=== PATIENT | male | born 1945 | race Caucasian/White ===

== ENCOUNTER 2020-05-10 18:18 | Inpatient (IN) | payer MEDICARE ==
[~2020-05-10] VITALS: Ht 185.4 cm; Wt 78.9 kg
[2020-05-10 18:58] LABS: BASOPHILS # (AUTO) 0.1 /CMM (0.0-0.2); BASOPHILS % (AUTO) 0.9 % (0.0-2.0); EOSINOPHILS % (AUTO) 3.8 % (0.0-6.0); HEMATOCRIT 41 % (39-51); HEMOGLOBIN 13.4 g/dL (13.5-17.5); LYMPHOCYTES # (AUTO) 1.4 /CMM (0.8-4.8); LYMPHOCYTES % (AUTO) 23.4 % (20.0-44.0); MEAN CORPUSCULAR HGB CONC 33 g/dl (31.0-36.0); MEAN CORPUSCULAR VOLUME 87 fL (80-96); MONOCYTES # (AUTO) 0.7 /CMM (0.1-1.30); MONOCYTES % (AUTO) 11.1 % (2.0-12.0); NEUTROPHILS # (AUTO) 3.6 /CMM (1.8-8.9); NEUTROPHILS % (AUTO) 60.8 % (43.0-81.0); PLATELET COUNT (AUTO) 283 /CMM (150-450)
--- NOTE | 2020-05-10 19:06 | NUR ---
AZALEA TO ER BED 12. ALERT, AWAKE BUT CONFUSED. NOT IN RESP DISTRESS. AMBULATORY. SENT BY DR. RODGERS FOR ALTERMENTAL STATUS EVIDENCED BY INCREASED CONFUSION. PT IS COMPLIANT AND COOPERATIVE. PT DENIES ANY THOUGHTS OF HURTING HIMSELF AND OTHERS. WAS AT THE BEDSIDE FOR EVAL. ORDERS RECEIVED NOTED AND CARRIED OUT. IV LINE ESTABLISHED ON R HAND 18G. BLOOD DRAWN AND GIVEN TO AUTOMATIC SPOOLER OPERATOR AT BEDSIDE. EKG DONE BY EMT. PT IS UNABLE TO URINATE AT THIS TIME. MADE AWARE. PROVIDED WITH MEAL AND DRINK TO PROMOTE URINATION.
--- NOTE | 2020-05-10 19:06 | NUR ---
Marisela parkinson in [facility] - 05/10/20 at 1906 by IVELISSE BIO
[2020-05-10 19:20] LABS: CARBON DIOXIDE 27 mmol/L (21-32); CHLORIDE 103 mmol/L (98-107); CREATININE 0.9 mg/dL (0.6-1.3); GLUCOSE 145 mg/dL (74-106); POTASSIUM 4.3 mmol/L (3.5-5.1); SODIUM SERUM 140 mmol/L (136-145); UREA NITROGEN, BLOOD 20 mg/dL (7-18)
--- NOTE | 2020-05-10 19:21 | NUR ---
called for covid swab
[2020-05-10 19:24] LABS: ALANINE AMINOTRANSFERASE 20 U/L (12-78); ALBUMIN 3.2 g/dL (3.4-5.0); ALCOHOL, BLOOD < 3 mg/dL (0-0); ALKALINE PHOSPHATASE 99 U/L (46-116); ASPARTATE AMINOTRANSFERASE 14 U/L (15-37); BILIRUBIN,DIRECT 0.1 mg/dL (0.0-0.2); BILIRUBIN,TOTAL 0.1 mg/dL (0.2-1.0); TOTAL PROTEIN, SERUM 7.1 g/dL (6.4-8.2)
[2020-05-10 19:25] LABS: SALICYLATE 0.6 mg/dL (2.8-20.0)
--- NOTE | 2020-05-10 19:28 | NUR ---
COVID SWAB DONE AND SENT TO LAB
--- NOTE | 2020-05-10 19:58 | NUR ---
PT HAS BEEN TRYING TO PROVIDE URINE SAMPLE BUT PT STILL UNABLE TO URINATE AT THIS TIME. PT IS GOING TO CT ON WHEELCHAIR. WILL TRY AGAIN ONCE HE GETS BACK FROM CT
--- NOTE | 2020-05-10 20:06 | NUR ---
LAB CALLED REGARDING NEGATIVE COVID RESULT.
[2020-05-10] MEDS ORDERED: LIDOCAINE 2% JEL UROJET 10 ML MM ONE ×2 (20:14→21:30)
--- NOTE | 2020-05-10 20:30 | NUR ---
BED ASSIGNMENT 215-B
--- NOTE | 2020-05-10 20:31 | NUR ---
URINE COLECTED VIA IN AND OUT CATH PER MD ORDERED. STRICT STERILE TECHNIQUE OBSERVED WHILE DOING THE PROCEDURE. LICOCAINE 2% UROJET USED. NO PAIN COMPLAINED BY THE PT
[2020-05-10 20:47] LABS: APPEARANCE,URINE Clear (CLEAR); BILIRUBIN,URINE Negative (NEGATIVE); BLOOD, URINE Trace-intact Ery/uL (NEGATIVE); COLOR,URINE Yellow (YELLOW); KETONES,URINE Trace (NEGATIVE); LEUKOCYTE ESTERASE ,URINE Trace (NEGATIVE); NITRITE, URINE Positive (NEGATIVE); PH,URINE 5.5 (5.0-8.0); PROTEIN,URINE 30 mg/dl (NEGATIVE); UGLUCOSE Negative (NEGATIVE); UROBILINOGEN,URINE 0.2 EU/dL (0.2)
[2020-05-10 21:07] LABS: BACTERIA,URINE 1+ /HPF (None Seen); MUCUS,URINE Few /LPF (None Seen); SQUAMOUS EPITHELIAL CELL,UR Few /HPF (None Seen)
--- NOTE | 2020-05-10 21:26 | NUR ---
MITCHEL REALW PAGED FOR PSYCH EVAL.
[2020-05-10 21:39] LABS: ACETAMINOPHEN 0 ug/ml (10-30)
--- NOTE | 2020-05-10 22:01 | NUR ---
MITCHEL PLANT FACILITIES TECHNICIAN AT BEDSIDE FOR PSYCH EVAL.
--- NOTE | 2020-05-10 22:48 | NUR ---
REPOT GIVEN TO LIZZIE LAW FOR AIDEN
[2020-05-10] MEDS ORDERED: CEPHALEXIN MONOHYDRATE 500 MG CAPSULE PO ONE ×2 (23:08→23:11)
[2020-05-10] MEDS: CEPHALEXIN MONOHYDRATE 500 MG CAPSULE PO SCH (23:13)
[2020-05-10 23:29] VITALS: BP 143/60
[2020-05-10] MEDS ORDERED: MAG HYDROX/AL HYDROX/SIMETH 30 ML UDC PO PRN (23:30)
[2020-05-10] MEDS ORDERED: MAGNESIUM HYDROXIDE 30 ML UDC PO PRN (23:30)
[2020-05-10] MEDS ORDERED: LORAZEPAM 0.5 MG TABLET PO PRN (23:30)
[2020-05-10] MEDS ORDERED: ACETAMINOPHEN 325 MG TABLET PO PRN (23:30)
[2020-05-10] MEDS ORDERED: BLOOD SUGAR DIAGNOSTIC 1 EACH STRIP IN ONE (23:30)
--- NOTE | 2020-05-10 23:30 | NUR ---
PT TRANSPORTED TO UNIT ON [facility] WITH RN AT BEDSIDE. PT IS IN STABLE CONDITION FOR TRANSPORT. NAD NOTED DURING TRANSPORT. PT AMBULATED FROM GURNEY TO BED WITH MIN ASSIST.
--- NOTE | 2020-05-11 00:01 | NUR ---
GPS RN NOTES: ADMISSION ADMITTED 74 Y/O MALE. PT ADMITTED FROM HOME TO GPS ON A 5150 GD. PER HOLD PT WAS BROUGHT IN BY FAMILY MEMBER FOR CHANGE IN MENTAL STATUS. FAMILY REPORT THAT HE HAS BEEN ACTING CONFUSED AND AGITATED. FAMILY IS CONCERNED FOR HIS SAFETY AND HIS RECENT STRANGE BEHAVIOR. PT HAS NOT BEEN SLEEPING AT HOME. UPON FACE TO FACE ASSESSMENT PT IS A/O X1-2, COOPERATIVE, CONFUSED, FORGETFUL, FRIENDLY WHEN SPOKEN TO, POOR HISTORIAN, GUARDED, AND COMPLAINT. PT IS AMBULATORY AND CONTINENT. PT STATED, "IM GLAD IM HERE. WAIT TILL MY SON SEES THIS PLACE. ITS CLEAN." PT HAS HARD OF HEARING ON HER LEFT AND RIGHT EAR AND IS CURRENTLY WEARING A HEARING AIDES ON BOTH SIDES. PT HAS NO SI OR HI AT THIS TIME. PT REFUSES TO SIGN CONSENT PAPERS DUE FEELING TIRED. ENVIRONMENTAL SAFETY CHECK Q15 MIN. ENCOURAGE PT TO VERBALIZE THOUGHTS AND FEELINGS TO STAFF. ORIENTED PT IN THE UNIT. BELONGINGS CHECKED FOR CONTRABAND. NURSING ASSESSMENT DONE. SKIN ASSESSMENT DONE WITH NOTED BILATERAL LOWER LEG SCABS/ SCRATCHES, SACRAL DISCOLORATION (PT CLAIMS HE HAD IT BECAUSE HE SITS TOO MUCH), AND LOWER ABDOMEN OLD SCAR . PICTURE TAKEN OF PTS FACE FOR IDENTIFICATION IN CHART. PTS RIGHTS DISCUSS BY HEALTH RECORDS TECHNOLOGY TEACHER. PROVIDE THE PT W/ HANDBOOK AND MED GUIDE. VITALS SIGNS WNL. NO RESP DISTRESS. BREATHING EVEN AND UNLABORED. NO PAIN AT THIS TIME. INITIAL BLOOD SUGAR CHECKED. CONTINUE TO MONITOR
[2020-05-11] MEDS ORDERED: METF-440 PO (01:13)
[2020-05-11] MEDS ORDERED: TAMS-12 (01:13)
[2020-05-11] MEDS ORDERED: SERT50TA12 PO (01:13)
[2020-05-11] MEDS ORDERED: QUETIAPINE (01:13)
[2020-05-11] MEDS ORDERED: DIVA125C5 PO (01:13)
[2020-05-11] MEDS: TEMAZEPAM 7.5 MG CAPSULE PO PRN (02:27)
--- NOTE | 2020-05-11 02:30 | NUR ---
GPS RN NOTES: INSOMNIA PT UNABLE TO SLEEP. OFFERED RESTORIL 7.5 MG PO PRN ORDERED. PT AGREED AND TOLERATED MEDICATION WELL. CONTINUE TO MONITOR.
[2020-05-11 08:00] VITALS: BP 110/66
[2020-05-11] MEDS ORDERED: *INSULIN REGULAR(HUMULIN R)HUM 100 UNIT/ML VIAL SQ PRN (08:30)
[2020-05-11] MEDS ORDERED: DEXTROSE 50%-WATER 50 ML DISP.SYRIN IV PRN ×2 (08:30→09:30)
[2020-05-11] MEDS ORDERED: INSULIN REGULAR, HUMAN 100 UNIT/ML 3 ML VIAL SQ PRN (08:30)
[2020-05-11] MEDS ORDERED: BLOOD SUGAR DIAGNOSTIC 1 EACH STRIP VI SCH (08:30)
[2020-05-11] MEDS: CEPHALEXIN MONOHYDRATE 500 MG CAPSULE PO SCH ×4 (08:41→21:36)
[2020-05-11] MEDS: DIVALPROEX SODIUM 125 MG TABLET.DR PO SCH ×2 (08:49→16:54)
--- NOTE | 2020-05-11 09:00 | NUR ---
RN NOTE- PT ALERT ORIENTED TO PERSON. NEEDS ATTENDED DENIES SI HI AH VH CALM WITH PERIODS OF RESTLESSNESS INTERACTIVE IF ENGAGED EDEMA LOWER LEGS PO INTAKE GOOD MED COMPLIANT
[2020-05-11] MEDS ORDERED: TAMS-12 PO (09:14)
[2020-05-11] MEDS ORDERED: SERT50TA PO (09:14)
[2020-05-11] MEDS ORDERED: QUET25TA PO (09:14)
[2020-05-11 09:38] LABS: CHOLESTEROL 224 mg/dL (<200); HDL CHOLESTEROL 41 mg/dL (40-60); LDL 149 mg/dL (0-99); TRIGLYCERIDES 203 mg/dL (30-150)
[2020-05-11 09:44] LABS: CREATININE 0.9 mg/dL (0.6-1.3)
[2020-05-11] MEDS: METFORMIN 500 MG TABLET PO SCH (10:18)
[2020-05-11] MEDS: BLOOD SUGAR DIAGNOSTIC 1 EACH STRIP IN SCH ×3 (11:59→21:37)
--- NOTE | 2020-05-11 14:16 | NUR ---
RN NOTE- PT RESTLESSNESS AGITATION. ATIVAN 0.5 MG GIVEN
[2020-05-11 16:00] VITALS: BP 130/82
[2020-05-11] MEDS: LORAZEPAM 1 MG TABLET PO PRN (16:15)
--- NOTE | 2020-05-11 16:15 | NUR ---
RN NOTE- ANXIETY AND RESTLESSNESS CONTINUE. DR ROBERTSON ORDERED DC ATIVAN 0.5 MG Q6H PRN AND START ATIVAN 1 MG Q4PRN.
[2020-05-11] MEDS: INSULIN REGULAR, HUMAN 100 UNIT/ML 3 ML VIAL SQ PRN ×2 (17:55→21:37)
[2020-05-11 19:47] VITALS: BP 128/79
[2020-05-11] MEDS: TAMSULOSIN 0.4 MG CAP.SR.24H PO SCH (21:36)
[2020-05-11] MEDS ORDERED: QUETIAPINE FUMARATE 25 MG TABLET PO SCH (22:00)
[2020-05-12] MEDS: BLOOD SUGAR DIAGNOSTIC 1 EACH STRIP IN SCH ×4 (07:21→21:05)
[2020-05-12 08:00] VITALS: BP 124/76
[2020-05-12] MEDS: DIVALPROEX SODIUM 125 MG TABLET.DR PO SCH (08:27)
[2020-05-12] MEDS: CEPHALEXIN MONOHYDRATE 500 MG CAPSULE PO SCH ×4 (08:27→20:00)
[2020-05-12] MEDS: METFORMIN 500 MG TABLET PO SCH (08:27)
--- NOTE | 2020-05-12 09:00 | NUR ---
RN NOTE- PT CALM QUIET THIS MORNING ORIENTED TO PERSON ONLY CONFUSED DIRECTABLE PO INTAKE GOOD MED COMPLIANT NO AGITATION OR BEHAVIORAL ISSUES
--- NOTE | 2020-05-12 10:09 | NUR ---
WOUND CARE CONSULT: PT PRESENTS WITH BLANCHABLE REDNESS TO BUTTOCKS. CURRENT GAGE SCORE IS 20. WILL SEE PRN.
[2020-05-12] MEDS: INSULIN REGULAR, HUMAN 100 UNIT/ML 3 ML VIAL SQ PRN ×2 (11:48→17:17)
[2020-05-12] MEDS: LORAZEPAM 1 MG TABLET PO PRN ×2 (13:15→19:04)
--- NOTE | 2020-05-12 13:15 | NUR ---
RN NOTE- AGITATION/ PT W RESTLESSNESS AND ATTEMPTS TO GET UP AND LEAVE ON OWN. PT CONFUSED THINKING HES AT A RESTAURANT . ATIVAN 1 MG GIVEN
--- NOTE | 2020-05-12 14:35 | NUR ---
SOFIE INITIAL DISCHARGE NOTE: Patient was living with his son, Eleazar ([phone]) at [address] [place] [address]. SOFIE spoke with Eleazar who stated that he has been looking into an Assisted Living Facility for the patient prior to his recent need for hospitalization. Eelazar stated that he will have a placement determined by the end of this week. This flex o writer operator shared with Eleazar that should he have any questions or need assistance in assuring the placement for the patient this flex o writer operator will be of assistance. SOFIE will continue to work with patient, family, and MD to ensure a safe and proper discharge plan.
--- NOTE | 2020-05-12 14:35 | NUR ---
FAMILY CONTACT: SOFIE spoke with patient's son, Eleazar ([phone]) regarding treatment and discharge plan. Eleazar has been looking into Assisted Living placement for the patient and stated that he has narrowed down a couple which he will finalize one by the end of this week. this ghost writer informed Eleazar of the overall length of stay in the acute psychiatric unit, and discharge planning. Eleazar was understanding and stated that he confirm a facility soon. This ghost writer offered Eleazar her assistance in finding an assisted living facility. Eleazar share that he will ask this ghost writer for help should he need it.
--- NOTE | 2020-05-12 14:55 | NUR ---
FAMILY CONTACT: SW received a call back from patient's son, Eleazar ([phone]) stating he is the DPOA. This story writer requested Eleazar to provide the documentation. This story writer is waiting for the documents to be emailed and will place the copy in the pt's chart.
[2020-05-12 16:00] VITALS: BP 118/74
[2020-05-12] MEDS: QUETIAPINE FUMARATE 25 MG TABLET PO SCH (16:41)
[2020-05-12] MEDS: DIVALPROEX SODIUM 250 MG TABLET.DR PO SCH (16:41)
--- NOTE | 2020-05-12 17:00 | NUR ---
RN NOTE- PT W CONTINUED AGITATION RESTLESSNESS AND WANDERING TRYING "TO GET THE HELL OUT OF HERE!" PT CONTINUES TO LOOK FOR CAR KEYS TO "LEAVE THIS RESTAURANT". DR ROBERTSON NOTIFIED. RX CHANGES IMPLEMENTED. DC CURRENT SEROQUEL AND DEPAKOTE ORDERS,. BEGIN SEROQUEL 25 MG TID AND DEPAKOTE 250 MG BID. COMPLIED
--- NOTE | 2020-05-12 19:04 | NUR ---
RN NOTE- INCREASING AGITATION IRRITABILITY. ATIVAN 1 MG GIVEN
[2020-05-12 19:52] VITALS: BP 109/71
[2020-05-12] MEDS: TAMSULOSIN 0.4 MG CAP.SR.24H PO SCH (21:03)
[2020-05-13] MEDS: BLOOD SUGAR DIAGNOSTIC 1 EACH STRIP IN SCH ×4 (06:38→21:25)
[2020-05-13 08:00] VITALS: BP 103/52
[2020-05-13] MEDS: QUETIAPINE FUMARATE 25 MG TABLET PO SCH ×4 (08:37→16:40)
[2020-05-13] MEDS: METFORMIN 500 MG TABLET PO SCH (08:37)
[2020-05-13] MEDS: DIVALPROEX SODIUM 250 MG TABLET.DR PO SCH ×2 (08:37→16:40)
[2020-05-13] MEDS: CEPHALEXIN MONOHYDRATE 500 MG CAPSULE PO SCH ×4 (08:37→21:17)
[2020-05-13] MEDS: INSULIN REGULAR, HUMAN 100 UNIT/ML 3 ML VIAL SQ PRN ×2 (11:55→21:25)
--- NOTE | 2020-05-13 14:18 | NUR ---
FAMILY CONTACT: SOFIE spoke with patient's son, Eleazar ([phone]) regarding discharge planning. Eleazar stated that he has been in contact with [address] [address] ([phone]) and wants patient to go to that facility upon discharge. This medical underwriter spoke with Rocco from the facility who confirmed patient is accepted at their facility. Addendum: 05/13/20 at 1447 by JORGE RAMIREZ SOFIE also discussed not having received the DPOA document from Eleazar yet, Eleazar stated that he will need to scan and send them.
[2020-05-13] MEDS: LORAZEPAM 1 MG TABLET PO PRN (14:34)
--- NOTE | 2020-05-13 14:36 | NUR ---
RN NOTE - PATIENT IS RESTLESS AND AGITATED, ATIVAN 1 mg GIVEN. WILL CONTINUE TO MONITOR.
--- NOTE | 2020-05-13 15:30 | NUR ---
GPS/RN-NOTES PATIENT IN THE DAY ROOM UP IN THE CHAIR CALM,NO ACUTE DISTRESS NOTED.
[2020-05-13 16:00] VITALS: BP 100/62
[2020-05-13 20:00] VITALS: BP 122/82
[2020-05-13 20:02] VITALS: BP 122/82
[2020-05-13] MEDS: TAMSULOSIN 0.4 MG CAP.SR.24H PO SCH (21:17)
[2020-05-13] MEDS: TEMAZEPAM 7.5 MG CAPSULE PO PRN (21:18)
--- NOTE | 2020-05-13 21:20 | NUR ---
RN NOTES PATIENT UNABLE TO SLEEP, OFFERED AND ADMINISTERED PRN RESTORIL. 7.5 MG. WILL CONTINUE TO MONITOR THROUGHOUT THE NIGHT.
[2020-05-14] MEDS: BLOOD SUGAR DIAGNOSTIC 1 EACH STRIP IN SCH ×4 (07:45→21:23)
[2020-05-14] MEDS: QUETIAPINE FUMARATE 25 MG TABLET PO SCH ×3 (08:30→16:02)
[2020-05-14] MEDS: CEPHALEXIN MONOHYDRATE 500 MG CAPSULE PO SCH ×4 (08:30→21:23)
[2020-05-14] MEDS: METFORMIN 500 MG TABLET PO SCH (08:30)
[2020-05-14] MEDS: DIVALPROEX SODIUM 250 MG TABLET.DR PO SCH ×2 (08:30→16:03)
[2020-05-14 08:47] VITALS: BP 104/65
--- NOTE | 2020-05-14 09:10 | NUR ---
FAMILY CONTACT: SW received the DPOA documents from patient's son, Eleazar ([phone]) and the copy has been placed in the chart.
[2020-05-14] MEDS: INSULIN REGULAR, HUMAN 100 UNIT/ML 3 ML VIAL SQ PRN ×2 (12:19→21:26)
[2020-05-14 16:00] VITALS: BP 130/81
[2020-05-14] MEDS: LORAZEPAM 1 MG TABLET PO PRN (17:00)
--- NOTE | 2020-05-14 17:01 | NUR ---
GPS/RN-NOTES NOTED PATIENT VERY ANXIOUS WANDERING TO OTHER ROOM ,UNABLE TO SIT STILL, ATIVAN 1MG P.O GIVEN PRN ORDER. WILL CONT. MONITORING FOR SAFETY AND BEHAVIOR.
--- NOTE | 2020-05-14 18:00 | NUR ---
GPS/RN-NOTES PATIENT IN THE DAY ROOM UP IN THE CHAIR,CALM NO ACUTE DISTRESS NOTED.
[2020-05-14 20:00] VITALS: BP 114/69
[2020-05-14] MEDS: TAMSULOSIN 0.4 MG CAP.SR.24H PO SCH (21:23)
[2020-05-15] MEDS: TEMAZEPAM 7.5 MG CAPSULE PO PRN ×2 (00:07→21:34)
--- NOTE | 2020-05-15 00:07 | NUR ---
GPS/RN NOTES: PATIENT HAVING DIFFICULTY SLEEPING. VS STABLE AND WNL. PRN RESTORIL 7.5MG 1 CAP ADMINISTERED ORDERED FOR INSOMNIA. WILL CONTINUE TO MONITOR ACCORDINGLY.
--- NOTE | 2020-05-15 01:00 | NUR ---
GPS/RN NOTES: PATIENT FELL ASLEEP. WILL CONTINUE TO MONITOR ACCORDINGLY.
[2020-05-15] MEDS: LORAZEPAM 1 MG TABLET PO PRN (02:31)
--- NOTE | 2020-05-15 02:31 | NUR ---
GPS/RN NOTES: PATIENT IS AWAKE AGAIN, HAVING DIFFICULTY SLEEPING. APPEARS AGITATED AND ANXIOUS, LOOKING FOR "DAISHA". VS STABLE AND WNL. PRN ATIVAN 1MG ADMINISTERED ORDERED FOR ANXIETY AND AGITATION. WILL CONTINUE TO MONITOR ACCORDINGLY.
--- NOTE | 2020-05-15 02:45 | NUR ---
GPS/RN NOTES: PATIENT IS NOW ASLEEP. IN BED, SAFETY MEASURES ARE INITIATED. BED ALARM ON. WILL CONTINUE TO MONITOR ACCORDINGLY.
[2020-05-15] MEDS: BLOOD SUGAR DIAGNOSTIC 1 EACH STRIP IN SCH ×4 (07:44→21:01)
[2020-05-15 08:00] VITALS: BP 127/77
[2020-05-15] MEDS: METFORMIN 500 MG TABLET PO SCH (08:48)
[2020-05-15] MEDS: DIVALPROEX SODIUM 250 MG TABLET.DR PO SCH ×3 (08:48→16:54)
[2020-05-15] MEDS: CEPHALEXIN MONOHYDRATE 500 MG CAPSULE PO SCH ×4 (08:48→20:06)
[2020-05-15] MEDS: QUETIAPINE FUMARATE 25 MG TABLET PO SCH ×3 (08:48→16:54)
[2020-05-15] MEDS: INSULIN REGULAR, HUMAN 100 UNIT/ML 3 ML VIAL SQ PRN ×2 (11:45→21:07)
--- NOTE | 2020-05-15 11:56 | NUR ---
PROBABLE CAUSE HEARING: Pt had probable cause hearing today and it was upheld for grave disability.
[2020-05-15 16:00] VITALS: BP 114/70
[2020-05-15 20:36] VITALS: BP 123/79
[2020-05-15] MEDS: TAMSULOSIN 0.4 MG CAP.SR.24H PO SCH (21:34)
--- NOTE | 2020-05-15 23:00 | NUR ---
GPS RN NOTE, RECEIVED PATIENT AWAKE AND IN NABIL CHAIR, NO S/S OR COMPLAINTS OF PAIN AT THIS TIME. PATIENT IS DISPLAYING NO S/S OF APPARENT DISTRESS AT THIS TIME. PATIENT BREATHING IS UNLABORED WITH EQUAL RISE AND FALL OF THE CHEST. PATIENT IS ALERT AND ORIENTED X 1 ON ROOM AIR WITH A SPO2 98%. PATIENT IS COMPLIANT WITH MEDICATIONS, CONFUSED, ANXIOUS AT TIMES, AND COOPERATIVE. PATIENT DENIES SUICIDAL AND HOMICIDAL IDEATIONS AT THIS TIME. PATIENT ASSISTED WITH TURNING AND REPOSITIONING Q2HR AND PRN FOR COMFORT AND CIRCULATION. PATIENT HAS NO NEEDS AT THIS TIME. WILL CONTINUE TO MONITOR THIS PATIENT Q15 MINUTES WITH THE HELP OF STAFF TO MAINTAIN SAFETY.
[2020-05-15] MEDS: LORAZEPAM 0.5 MG TABLET PO PRN (23:22)
--- NOTE | 2020-05-15 23:22 | NUR ---
GPS RN NOTE, PATIENT HAS A COMPLAINT OF FEELING ANXIOUS AND IS REQUESTING MEDICATION AT THIS TIME. PATIENT VITAL SIGNS ARE STABLE. GAVE ATIVAN 0.5MG PO Q4HR PRN ORDERED. WILL REASSESS FOR ANXIETY AND I WILL CONTINUE TO MONITOR THIS PATIENT.
[2020-05-16] MEDS: BLOOD SUGAR DIAGNOSTIC 1 EACH STRIP IN SCH ×4 (07:34→22:17)
[2020-05-16 08:00] VITALS: BP 105/69
[2020-05-16] MEDS: DIVALPROEX SODIUM 250 MG TABLET.DR PO SCH ×3 (08:09→16:20)
[2020-05-16] MEDS: CEPHALEXIN MONOHYDRATE 500 MG CAPSULE PO SCH ×4 (08:10→21:49)
[2020-05-16] MEDS: METFORMIN 500 MG TABLET PO SCH (08:10)
[2020-05-16] MEDS: QUETIAPINE FUMARATE 25 MG TABLET PO SCH ×3 (08:10→16:21)
--- NOTE | 2020-05-16 09:00 | NUR ---
RN NOTE- PT ALERT ORIENTED TO PERSON ONLY CONFUSED IRRITABLE AT TIMES. MED COMPLIANT PO INTAKE GOOD ATTEMPTS TO WALK AND GET OOB UNASSISTED, PT A BIT UNSTEADY W SEROQUEL AND DEPAKOTE RX DOSING. MONITORING FOR SAFETY
[2020-05-16] MEDS: LORAZEPAM 0.5 MG TABLET PO PRN (14:03)
--- NOTE | 2020-05-16 14:03 | NUR ---
RN NOTE- AGITATION RESTLESSNESS. PT WITH AGITATION AND RESTLESSNESS. ATTEMPTING TO WALK ON OWN CLIMBING OOB AND CHAIR. ATIVAN 0.5 MG GIVEN
[2020-05-16 16:00] VITALS: BP 93/64
[2020-05-16 19:56] VITALS: BP 116/73
[2020-05-16] MEDS: TAMSULOSIN 0.4 MG CAP.SR.24H PO SCH (21:49)
[2020-05-16] MEDS: TEMAZEPAM 7.5 MG CAPSULE PO PRN (22:18)
--- NOTE | 2020-05-16 22:35 | NUR ---
GPS RN NOTE: 2217 BLOOD SUGAR 130MG/DL, NO INSULIN COVERAGE NEEDED PER SLIDING SCALE ORDER. WILL CONTINUE TO MONITOR
--- NOTE | 2020-05-16 22:38 | NUR ---
GPS RN NOTE: RESTORIL 7.5MG 1 CAP GIVEN PO PRN ORDERED AT 5 FOR INSOMNIA. WILL CONTINUE TO MONITOR.
[2020-05-17] MEDS: BLOOD SUGAR DIAGNOSTIC 1 EACH STRIP IN SCH ×4 (07:41→22:10)
[2020-05-17 08:00] VITALS: BP 132/63
[2020-05-17] MEDS: DIVALPROEX SODIUM 250 MG TABLET.DR PO SCH ×3 (08:31→17:10)
[2020-05-17] MEDS: QUETIAPINE FUMARATE 25 MG TABLET PO SCH ×3 (08:31→17:10)
[2020-05-17] MEDS: CEPHALEXIN MONOHYDRATE 500 MG CAPSULE PO SCH ×4 (08:31→21:16)
[2020-05-17] MEDS: METFORMIN 500 MG TABLET PO SCH (08:32)
--- NOTE | 2020-05-17 11:42 | NUR ---
RN NOTES RECEIVED HAND OFF REPORT FOR AIDEN
[2020-05-17] MEDS: LORAZEPAM 0.5 MG TABLET PO PRN (14:54)
--- NOTE | 2020-05-17 15:00 | NUR ---
RN NOTES PT APPEARS TO BE RESTLESS WHILE SITTING IN GERICHAIR, CONSTANTLY TRYING TO REMOVE TABLE. MEDICATED WITH PRN ATIVAN 0.5 MG PO, WILL CONTINUE TO MONITOR
[2020-05-17 16:00] VITALS: BP 101/50
[2020-05-17] MEDS: INSULIN REGULAR, HUMAN 100 UNIT/ML 3 ML VIAL SQ PRN ×2 (17:13→21:30)
--- NOTE | 2020-05-17 19:05 | NUR ---
PATIENT IS IN THE NABIL- CHAIR, AWAKE. RESTLESS AND SLIGHTLY AGITATED.
--- NOTE | 2020-05-17 19:15 | NUR ---
RN NOTES: RECEIVED PATIENT IN THE NABIL-CHAIR, AWAKE. NO S/S OF DISTRESS NOTED. NO COMPLAIN OF PAIN. PATIENT PLACED IN FRONT OF THE NURSING STATION.
[2020-05-17 20:00] VITALS: BP 107/64
[2020-05-17] MEDS: TAMSULOSIN 0.4 MG CAP.SR.24H PO SCH (21:16)
[2020-05-17] MEDS: TEMAZEPAM 7.5 MG CAPSULE PO PRN (21:16)
[2020-05-17] MEDS: Z GUARD REMEDY 2 OZ OINT TP PRN (21:31)
--- NOTE | 2020-05-17 23:00 | NUR ---
PATIENT STATED THAT HE WANTS TO GO TO BED NOW, PLACED PATIENT BACK TO BED, BED ALARM ON. SIDERAILS UP.
--- NOTE | 2020-05-18 02:30 | NUR ---
bed alarm went off, patient got up and assisted to the bathroom, patient voided. Ambulatory,syeady gait with little unsteady, standby assist only. patient went back to bed. Bed alarm on.
[2020-05-18] MEDS: BLOOD SUGAR DIAGNOSTIC 1 EACH STRIP IN SCH ×4 (07:28→22:26)
[2020-05-18 08:00] VITALS: BP 104/72
[2020-05-18] MEDS: CEPHALEXIN MONOHYDRATE 500 MG CAPSULE PO SCH ×4 (08:24→21:13)
[2020-05-18] MEDS: DIVALPROEX SODIUM 250 MG TABLET.DR PO SCH ×3 (08:24→16:05)
[2020-05-18] MEDS: METFORMIN 500 MG TABLET PO SCH (08:24)
[2020-05-18] MEDS: QUETIAPINE FUMARATE 25 MG TABLET PO SCH ×3 (08:24→16:04)
--- NOTE | 2020-05-18 09:00 | NUR ---
RN NOTE- ALERT CONFUSED ORIENTED TO SELF ONLY CALM DIRECTABLE MED COMPLIANT SLIGHT ERYTHEMATOUS RASH TO NOSE FOREHEAD AREA. NOT NOTED PREVIOUSLY ON ASSESSMENT MONDAY. CALLED DR ROBERTSON AND INFORMED MEDICAL. WILL F/U
--- NOTE | 2020-05-18 10:15 | NUR ---
RN NOTE- TEARER PRESS CLIPPING ORDERED HYDROCORTISONE CREAM 1% BID TO AFFECTED AREA FACE, FOREHEAD. COMPLIED.
[2020-05-18] MEDS: INSULIN REGULAR, HUMAN 100 UNIT/ML 3 ML VIAL SQ PRN ×3 (11:57→22:29)
--- NOTE | 2020-05-18 14:23 | NUR ---
FAMILY CONTACT: SW contacted patient's son, Eleazar ([phone]) and left a voicemail for callback.
--- NOTE | 2020-05-18 15:20 | NUR ---
FAMILY CONTACT: SOFIE received a call from patient's son, Eleazar ([phone]) who contacted SW to inquire on pts discharge date. SW informed him that as of today pt does not have an anticipated discharge date. SW stated she would contact son as soon as MD gives discharge order. Son agreed.
[2020-05-18 16:00] VITALS: BP 112/69
[2020-05-18] MEDS: HYDROCORTISONE OINT 1% 28.35 GM TUBE TP SCH (16:05)
[2020-05-18] MEDS: LORAZEPAM 0.5 MG TABLET PO PRN (19:45)
--- NOTE | 2020-05-18 19:47 | NUR ---
RN NOTES: ANXIETY PT. NOTED VERY ANXIOUS PARANOID , RESTLESS TRYING TO CLIMBING OUT THE BED NON DIRECTABLE,ATIVAN 0.5 MG PO PRN GIVEN FOR PT. BEHAVIOR WILL CONTINUE TO MONITOR.
[2020-05-18 20:13] VITALS: BP 131/74
[2020-05-18] MEDS: TAMSULOSIN 0.4 MG CAP.SR.24H PO SCH (22:12)
[2020-05-18 22:35] VITALS: BP 127/75
[2020-05-18] MEDS: TEMAZEPAM 7.5 MG CAPSULE PO PRN (23:41)
--- NOTE | 2020-05-18 23:43 | NUR ---
RN NOTES INSOMNIA PT.C/O UNABLE TO SLEEP RESTORIL 7.5 MG PO PRN GIVEN , PER PT. REQUEST, WILL CONTINUE TO MONITOR.
[2020-05-19] MEDS: Z GUARD REMEDY 2 OZ OINT TP PRN (06:46)
--- NOTE | 2020-05-19 07:03 | NUR ---
RN NOTES: PT. RESTING IN HIS ROOM, PT. BEHAVIOR EASILY AGITATED , PRARNOID ,DELUSIONAL, HYPERVERBAL, N MED COMPLIANT AND PLAN OF CARE . NO S/S OF DISTRESS NOTED . NO CHANGE OF CONDITION NOTED, ALL CARE NEEDS MET ANTICIPATED. WILL CONTINUE TO MONITOR FOR SAFETY BEHAVIOR, AND ENDORSE TO AM SHIFT FOR CONTINUITY OF CARE.
[2020-05-19] MEDS: BLOOD SUGAR DIAGNOSTIC 1 EACH STRIP IN SCH ×2 (07:30→11:51)
[2020-05-19 08:00] VITALS: BP 94/64
[2020-05-19] MEDS: DIVALPROEX SODIUM 250 MG TABLET.DR PO SCH ×2 (08:13→12:01)
[2020-05-19] MEDS: METFORMIN 500 MG TABLET PO SCH (08:13)
[2020-05-19] MEDS: QUETIAPINE FUMARATE 25 MG TABLET PO SCH ×2 (08:13→12:00)
[2020-05-19] MEDS: HYDROCORTISONE OINT 1% 28.35 GM TUBE TP SCH (08:17)
--- NOTE | 2020-05-19 08:24 | NUR ---
FAMILY CONTACT: SW contacted patient's son, Eleazar ([phone]) and left a voicemail informing him pt will be discharged on this present day to [facility].
--- NOTE | 2020-05-19 09:00 | NUR ---
RN NOTE- ALERT CONFUSED ORIENTED TO SELF MED COMPLIANT MAY DC TODAY
--- NOTE | 2020-05-19 09:08 | NUR ---
FACILITY CONTACT: SOFIE contacted Aggie, retail pricing coordinator at [facility] Address: [address] [place] [address] to inform her pt will be discharged on this day. Per Aggie, she has not received a referral packet for this pt and is requested a packet faxed to . SOFIE faxed referral.
--- NOTE | 2020-05-19 09:43 | NUR ---
DISCHARGE NOTE: Pt will be discharged at 2:00pm via [facility] to [facility] Address: [address] [place] [address] . Pts son, Eleazar ([phone]) has been notified. Pts mood is pleasant and confused with congruent affect. Pt denies visual/auditory hallucinations and denies suicidal/homicidal ideation. Pt is alert and oriented x1 to self only and is ambulatory. Pt is appropriately groomed and dressed. Pt will be under the care of Psychiatrist: Dr. Vee Address: [address] [place] [address] and Home Child Care Provider: Dr. Himanshu Santiago [address] [address] . The multidisciplinary exit care form was done, printed, signed, and given to the patient.
--- NOTE | 2020-05-19 11:00 | NUR ---
RN NOTE- PHONED KEYSHAWN VICTORIA TO GIVE REPORT ON PT. PLACED ON HOLD. WAS EVENTUALLY TOLD THAT RN WOULD CALL ME BACK TO RECEIVE REPORT.
--- NOTE | 2020-05-19 12:38 | NUR ---
RN NOTE- LAB REPORT - COVID TEST NEG
--- NOTE | 2020-05-19 14:35 | NUR ---
RN NOTE- DISCHARGE/ PT DC TO [facility] AT THIS TIME VIA AMBULANCE AND GURNEY. REPORT CALLED TO FACILITY TWICE BUT NOT TAKEN. WAS TOLD THEY WOULD CALL THIS RN FOR REPORT. FACILITY NEVER DID. REPORT GIVEN TO AMBULANCE STAFF. DC INSTRUCTIONS REVEIWED AND UNDERSTOOD. VS STABLE, ALERT ORIENTED TO SELF. CONFUSED CALM DIRECTABLE. PTS CLOTHING AND HEARING AID RETURNED TO HIM. ID [id number] REMOVED. ESCORTED OFF UNIT BY STAFF PER PROTOCOL.
== END 2020-05-19 14:35 | DRG 885 ==
LOC: ER 18:28 → GPS 22:43
PROVIDERS: ADMIT Psychiatry & Neurology Psychiatry; ATTEND Internal Medicine
DX: F29 Unspecified psychosis not due to a substance or known physiological condition (principal); E43 Unspecified severe protein-calorie malnutrition; E11.65 Type 2 diabetes mellitus with hyperglycemia; N39.0 Urinary tract infection, site not specified; F41.9 Anxiety disorder, unspecified; F03.90 Unspecified dementia, unspecified severity, without behavioral disturbance, psychotic disturbance, mood disturbance, and anxiety; F32.9 Major depressive disorder, single episode, unspecified; D64.9 Anemia, unspecified; Z73.6 Limitation of activities due to disability; M62.81 Muscle weakness (generalized); E88.09 Other disorders of plasma-protein metabolism, not elsewhere classified; Z68.23 Body mass index [BMI] 23.0-23.9, adult; Z79.84 Long term (current) use of oral hypoglycemic drugs
CPT/HCPCS: 36415; 70450-TC; 71045-TC; 80048-TC; 80061-TC; 80076-TC; 80305; 81000-TC; 82565-TC; 82962-TC; 84484-TC; 85025-TC; 87081-TC; 87086-TC; 97116-TC; 97530-TC; C9803-CS; G0480; J1815; J3490

== ENCOUNTER 2021-06-10 09:12 | Emergency (ER) | payer MEDICARE, OTHER ==
[~2021-06-10] VITALS: Ht 182.9 cm; Wt 93.4 kg
[~2021-06-10 09:12] MED LIST: DIVA125C5 PO; METF-440 PO; QUET25TA PO; SERT50TA PO; TAMS-12 PO
--- NOTE | 2021-06-10 09:30 | NUR ---
THE PATIENT IS BIBPA FROM [facility] DUE TO UNWITNESSED FALL. THE PATIENT IS ALERT AND ORIENTED X1. DENIES PAIN. IN ROOM AIR AND DENIES SOB. RESPIRATION REGULAR AND UNLABORED. NOTED RIGHT UPPER CHEEK SMALL ABRASION WITH NO BLEEDING. THE PATIENT UNABLE TO GIVE DETAILS HOW DID HE FALL. ATTACHED TO THE MONITOR. WILL CONTINUE TO MONITOR THE PATIENT.
--- NOTE | 2021-06-10 09:31 | NUR ---
THE PATIENT IS TAKEN TO CT
--- NOTE | 2021-06-10 09:39 | NUR ---
THE PATIENT IS BACK FROM CT
[2021-06-10 10:26] LABS: BASOPHILS # (AUTO) 0.1 K/uL (0.0-0.2); BASOPHILS % (AUTO) 0.7 % (0.0-2.0); EOSINOPHILS % (AUTO) 1.2 % (0.0-6.0); HEMATOCRIT 41 % (39-51); HEMOGLOBIN 13.8 g/dL (13.5-17.5); LYMPHOCYTES # (AUTO) 1.8 K/uL (0.8-4.8); MEAN CORPUSCULAR HGB CONC 33 g/dl (31.0-36.0); MEAN CORPUSCULAR VOLUME 90 fL (80-96); MONOCYTES # (AUTO) 1.1 K/uL (0.1-1.30); MONOCYTES % (AUTO) 12.9 % (2.0-12.0); NEUTROPHILS # (AUTO) 5.8 K/uL (1.8-8.9); NEUTROPHILS % (AUTO) 65.2 % (43.0-81.0); PLATELET COUNT (AUTO) 264 K/uL (150-450); WHITE BLOOD COUNT (AUTO) 8.8 K/uL (4.3-11.0)
[2021-06-10 10:35] LABS: CALCIUM, SERUM 9.3 mg/dL (8.5-10.1); CARBON DIOXIDE 31 mmol/L (21-32); CHLORIDE 103 mmol/L (98-107); CREATININE 0.8 mg/dL (0.6-1.3); GLUCOSE 191 mg/dL (74-106); POTASSIUM 4.2 mmol/L (3.5-5.1); SODIUM SERUM 139 mmol/L (136-145); UREA NITROGEN, BLOOD 19 mg/dL (7-18)
[2021-06-10] MEDS ORDERED: HYDROCODONE/APAP 10/325MG TABLET PO ONE (11:00)
[2021-06-10] MEDS ORDERED: HYDROCODONE/APAP 10/325MG TABLET ONE (11:03)
--- NOTE | 2021-06-10 12:05 | NUR ---
CALLED [facility] FOR S TRANSPORT TO [facility]. ETA [phone]
--- NOTE | 2021-06-10 13:17 | NUR ---
Patient discharged to private ambulance in stable condition. Written and verbal after care instructions given.
[2021-06-10 13:19] VITALS: BP 121/89
== END 2021-06-10 13:19 | disposition home or self-care (01) ==
LOC: ER 09:18
DX: S09.8XXA Other specified injuries of head, initial encounter (principal); G91.9 Hydrocephalus, unspecified; F03.90 Unspecified dementia, unspecified severity, without behavioral disturbance, psychotic disturbance, mood disturbance, and anxiety; E11.9 Type 2 diabetes mellitus without complications; F32.9 Major depressive disorder, single episode, unspecified; Z98.890 Other specified postprocedural states; Z79.899 Other long term (current) drug therapy; Z79.84 Long term (current) use of oral hypoglycemic drugs; W18.39XA Other fall on same level, initial encounter; Y93.89 Activity, other specified; Y92.89 Other specified places as the place of occurrence of the external cause; Y99.8 Other external cause status
CPT/HCPCS: 36415; 70450-TC; 71045-TC; 72125-TC; 80048-TC; 84484-TC; 85025-TC